=== PATIENT | male | born 1965 | race Caucasian/White ===

== ENCOUNTER 2018-10-08 14:21 | Emergency (ER) | payer BC ==
[~2018-10-08] VITALS: Ht 162.6 cm; Wt 100.2 kg
[2018-10-08 14:33] VITALS: Ht 162.6 cm; Wt 100.2 kg
[2018-10-08 17:46] VITALS: BP 137/92; PULSE 72; RESP 18
[2018-10-08] MEDS ORDERED: BENA40TA56 PO (17:58)
[2018-10-08] MEDS ORDERED: ZOLP10TA5 PO (17:59)
[2018-10-08] MEDS ORDERED: METF850T13 PO (17:59)
[2018-10-08] MEDS ORDERED: ATOR40TA68 PO (17:59)
[2018-10-08] MEDS ORDERED: GLIM4TAB PO (18:00)
[2018-10-08] MEDS ORDERED: TAMS-14 PO (18:00)
[2018-10-08] MEDS ORDERED: AMLO-147 PO (18:01)
[2018-10-08] MEDS ORDERED: VALS1TAB82 PO (18:01)
--- NOTE | 2018-10-08 18:07 | ERD ---
ER Documentation Chief Complaint Chief Complaint chest pain when inhaling x 2 hrs HPI This is a 53-year-old male with a past medical history of hypertension who is presenting with a transient 30 minutes to 1 hour episode of mild aching mid substernal nonradiating chest pain only with taking a deep breath, resolving on its own. When breathing normally, the patient did not notice any issues. The pain resolved when not moving. The patient cannot take deep breaths without issue. He is not sure what could have led to this problem. The patient currently has no complaints and feels well. At this time, the patient denies any chest pain or shortness of breath or pleuritic pain. He does not endorse diaphoresis. He does not endorse lightheadedness or dizziness. He does not endorse nausea or vomiting. It was not associated with eating. The patient does not endorse any recent prolonged travel. He has not been bedbound for any reason. He does not have a personal or family history of blood clots or bleeding disorders. He does not endorse any calf swelling or tenderness. The patient had a colonoscopy completed yesterday. The physician at the time told him to follow-up with his primary doctor to get an EKG and a chest x-ray, but the patient was not told why. He has been nervous about this since. The patient denies feeling sick recently. The patient denies fever or chills. The patient has had no headache or vision changes. The patient does not endorse neck or back pain. The patient denies abdominal pain. The patient denies changes to bowel movements or urination. The patient has had no focal deficits. The patient has had no weakness or numbness or tingling to the face or extremities. ROS All systems reviewed and are negative except as per history of present illness. Allergies Allergies: Coded Allergies: No Known Allergy (Unverified , 10/08/18) PMhx/Soc History of Surgery: Yes (TONSILLECTOMY ) Anesthesia Reaction: No Hx Neurological Disorder: No Hx Respiratory Disorders: No Hx Cardiac Disorders: Yes (HTN) Hx Psychiatric Problems: No Hx Miscellaneous Medical Probl: No Hx Alcohol Use: No Hx Substance Use: No Hx Tobacco Use: No Smoking Status: Never smoker FmHx Family History: No diabetes Physical Exam Vitals Vital Signs Date Temp Pulse Resp B/P (MAP) Pulse Ox O2 O2 Flow FiO2 Time Delivery Rate 10/08/18 74 18 139/96 99 Room Air 16:26 (110) 10/08/18 99.7 83 16 144/84 94 14:33 (104) Physical Exam Const: No acute distress Head: Atraumatic Eyes: Normal Conjunctiva ENT: Normal External Ears, Nose and Mouth. Neck: Full range of motion. No meningismus. Resp: Clear to auscultation bilaterally Cardio: Regular rate and rhythm, no murmurs. No chest tenderness to palpation. Abd: Obese, soft, non tender, non distended. Normal bowel sounds Skin: No petechiae or rashes Back: No midline or flank tenderness Ext: No cyanosis, or edema Neur: Awake and alert Psych: Normal Mood and Affect Result Diagram: 10/08/18 1634 10/08/18 1634 Results 24 hrs Laboratory Tests Test 10/08/18 16:34 White Blood Count 11.0 10^3/ul Red Blood Count 5.87 10^6/ul Hemoglobin 15.8 g/dl Hematocrit 46.9 % Mean Corpuscular Volume 79.9 fl Mean Corpuscular Hemoglobin 26.9 pg Mean Corpuscular Hemoglobin Concent 33.7 g/dl Red Cell Distribution Width 13.4 % Platelet Count 238 10^3/UL Mean Platelet Volume 9.8 fl Immature Granulocytes % 0.400 % Neutrophils % 74.9 % Lymphocytes % 16.0 % Monocytes % 7.1 % Eosinophils % 1.1 % Basophils % 0.5 % Nucleated Red Blood Cells % 0.0 /100WBC Immature Granulocytes # 0.040 10^3/ul Neutrophils # 8.3 10^3/ul Lymphocytes # 1.8 10^3/ul Monocytes # 0.8 10^3/ul Eosinophils # 0.1 10^3/ul Basophils # 0.1 10^3/ul Nucleated Red Blood Cells # 0.0 10^3/ul Prothrombin Time 12.8 Sec Prothrombin Time Ratio 1.0 INR International Normalized Ratio 0.95 Sodium Level 143 mmol/L Potassium Level 3.5 mmol/L Chloride Level 102 mmol/L Carbon Dioxide Level 31 mmol/L Anion Gap 10 Blood Urea Nitrogen 14 mg/dl Creatinine 0.69 mg/dl Est Glomerular Filtrat Rate mL/min > 60 mL/min Glucose Level 244 mg/dl Calcium Level 9.6 mg/dl Troponin I Pending B-Type Natriuretic Peptide Pending Procedures/MDM MDM The patient's presentation warrants further investigation. Previous medical records, if available, were reviewed. LABS The patient's laboratory testing was obtained and reviewed. No emergent treatment was required unless described below. CBC: No E/o systemic infection or severe anemia or thrombocytopenia Chemistry: No E/o severe acidosis or alkalosis or renal failure. Hyperglycemia without diabetic ketoacidosis PT/INR: No E/o significant coagulopathy Troponin: No E/o acute ischemia EKG EKG read by me: Rate/Rhythm: Sinus rhythm at 76 bpm with occasional PVCs Intervals: Normal DE interval and QTc. Wide QRS in the setting of a right bundle branch block. Mccormick: Indeterminate Impression: Q waves in the inferior leads indicating likely old ischemia. No ST or T wave changes concerning for acute ischemia or STEMI. IMAGING Imaging and Radiology interpretation reviewed. CXR 1V Interpreted by me Soft Tissue: No acute abnormalities Bones: No acute abnormalities Mediastinum/Cardiac Silhouette: Unremarkable. No widened mediastinum. Lungs: No acute abnormalities. Normal pulmonary vasculature. No pneumothorax. No pulmonary edema. Clear costal diaphragmatic angles. No pleural effusions. No opacity or consolidations concerning for pneumonia. TREATMENT/DISPOSITION The patient's chest xray does not reveal pneumonia or pneumothorax or pleural ef fusions or pulmonary edema. The patient does not have a widened mediastinum and does not have signs or symptoms concerning for thoracic aortic aneurysm or dissection. The patient does not have pneumomediastinum or signs concerning for esophageal tear or rupture. The patient has no clinical or radiographic signs of pericardial effusion or tamponade. The patient does not have pneumoperitoneum and I have decreased suspicion of viscus perforation as possible referred pain. The patient does not have a history of heart failure and I have low suspicion for this. The patient does not have a diagnosis of COPD and is not wheezing today. The patient is not tachypneic or hypoxic. The patient is breathing comfortably and without pleuritic pain. The patient is not on hormonal therapy. The patient has no history of clotting or bleeding disorders. The patient has no calf tenderness or swelling. There are no symptoms concerning for DVT. The patient has had no hemoptysis. It would be very atypical for us to have completely resolved and for it to have been a PE. At this time, I have very low suspicion for suspicion for PE. The patient's troponin and EKG are reassuring. I have low suspicion for acute coronary syndrome. The patient's HEART score is equal to or less than 3. This stratifies the patient into the low risk (<1%) group for an major adverse cardiac event within the next 30 days. Shared decision making was enacted. The risks and benefits of admission and discharge were discussed with the patient and it was ultimately decided that the patient would be discharged with close outpatient follow up and evaluation for functional testing within 72 hours. DISCHARGE Upon reevaluation of the patient, symptoms have improved. No emergent diagnoses were identified. At this time, I feel that the patient stable for discharge. The patient was instructed to follow-up with a primary care physician in 1-3 days. The patient will be given strict precautions with which to return to the emergency department. Prescriptions: None The patient's blood pressure was elevated at greater than 120/80 while in the emergency department. The patient was otherwise stable with no evidence of hypertensive urgency or emergency. The patient does not require admission for blood pressure control. I have discussed with the patient the risks of hypertension. I have instructed the patient to return to the ER for any new or worsening symptoms including chest pain, shortness of breath, headache, blurred vision, confusion, nausea, vomiting or LOC. I have advised the patient to follow up with the primary care physician for outpatient monitoring and treatment for hypertension in 1-3 days. Disclaimer: Inadvertent spelling and grammatical errors are likely due to EHR/dictation software use and do not reflect on the overall quality of patient care. Note that the electronic time recorded on this note does not necessarily reflect the actual time of the patient encounter. Departure Diagnosis: Primary Impression: Nonspecific chest pain Additional Impression: Hyperglycemia Condition: Stable Patient Instructions: Chest Pain, Uncertain Cause, Hyperglycemia (High Blood S ugar) Additional Instructions: Thank you for for coming to [facility] for your care today. Please ask your nurse or provider if you have questions about your care today and do not leave until all your questions have been answered. Please use any medications given as directed and follow-up with your doctor (or the doctor you were referred to) in the next 1-3 days. If you do not have a primary care doctor you may follow up at the [facility] or [facility] (listed below). You may also use motrin and tylenol as needed for fever and/or pain unless instructed otherwise by your provider or nurse. Indications for more urgent follow-up have been discussed, but you may return to the Emergency Department at ANY time for any worrisome or worsening symptoms. If you have abdominal pain, please know that no test or exam you received is perfect and you should follow up within 8 hours for continued pain. If you had any imaging studies today, such as an X-Ray or CT Scan, these studies will be reviewed later by a radiologist. You will be called if there are important findings that were not identified today, so make sure the contact information you provided at registration is correct. If you received any narcotic pain control medicine today, such as Vicodin, Morphine or Dilaudid, your coordination and judgment may be affected for a number of hours. Please do not drive or operate heavy machinery, and you may want someone to assist you at home. If you were given a prescription for narcotic medication, be aware that it is very addictive- use sparingly and only if necessary. PLEASE SEEK FURTHER EVALUATION AND MANAGEMENT AT YOUR DOCTORS OFFICE WITHIN THE NEXT 1-3 DAYS. IT IS YOUR RESPONSIBILITY TO MAKE AN APPOINTMENT FOR FOLOW-UP CARE. IF YOU HAVE A PRIMARY DOCTOR, PLEASE CALL THEIR OFFICE TO SCHEDULE AN APPOINTMENT FOR FOLLOW UP. IF YOU DO NOT HAVE A PRIMARY DOCTOR YOU CAN CALL OUR PHYSICIAN REFERRAL HOTLINE AT IF YOU CAN NOT AFFORD TO SEE A PHYSICIAN YOU CAN CHOSE FROM THE FOLLOWING [facility] CLINICS: [facility] [address] [facility] [address] [facility] [address] [facility] [address] [facility] [address] [facility] [address] [address] [facility]. [address] OLE MEJIAS MD Oct 08, 2018 17:29
== END 2018-10-08 18:10 | disposition home or self-care (01) ==
LOC: E/R 14:21
DX: I10 Essential (primary) hypertension (principal); R73.9 Hyperglycemia, unspecified
CPT/HCPCS: 71045; 80048; 83880; 84484; 85025; 85610